=== PATIENT | female | born 1945 | race Caucasian/White ===

== ENCOUNTER → 2016-06-24 | Outpatient (CLI) | payer BC, MEDICARE ==
[2016-06-24 16:55] LABS: Albumin 3.7 g/dL (3.4-5.0); Bilirubin, Direct 0.2 mg/dL (0-0.2); Bilirubin, Total 0.4 mg/dL (0.2-1.0); Total Protein 7.1 g/dL (6.4-8.2)
== END | disposition home or self-care (01) ==
LOC: LAB 09:24
PROVIDERS: ATTEND Internal Medicine Cardiovascular Disease
DX: K74.1 Hepatic sclerosis (principal); E11.9 Type 2 diabetes mellitus without complications; R70.0 Elevated erythrocyte sedimentation rate
CPT/HCPCS: 36415; 80076; 83036; 85652

== ENCOUNTER → 2016-07-11 | Outpatient (CLI) | payer BC, MEDICARE | END | disposition home or self-care (01) | LOC: Rad HDHVI 12:02 | PROVIDERS: ATTEND Internal Medicine Cardiovascular Disease | DX: G45.9 Transient cerebral ischemic attack, unspecified (principal) | CPT/HCPCS: 93880 ==

== ENCOUNTER → 2016-07-23 | Outpatient (CLI) | payer BC, MEDICARE | END | disposition home or self-care (01) | LOC: Rad HDHVI 14:58 | PROVIDERS: ATTEND Internal Medicine Cardiovascular Disease | DX: I10 Essential (primary) hypertension (principal); E03.9 Hypothyroidism, unspecified | CPT/HCPCS: 93306 ==